=== PATIENT | female | born 1945 | race African-American/Black ===

== ENCOUNTER 2017-06-10 14:27 | Inpatient (IN) | payer MEDICARE ==
[2017-06-10] MEDS ORDERED: Albuterol/Ipratropium NEB.SOL* Albuterol 2.5 MG/Ipratropium 0.5 MG 3 ML INH ONE (14:52)
--- NOTE | 2017-06-10 15:16 | RAD ---
Indication: Shortness of breath. 2 views of the chest are reviewed. No prior study is available for comparison. There is a large right pleural effusion with right basilar atelectasis is noted. Left lung field is clear. IMPRESSION: Large right pleural effusion with right basilar atelectasis. Left lung field is clear.
[2017-06-10 16:00] LABS: Hematocrit 40 % (35-47); Hemoglobin 13.4 g/dl (12.0-16.0); Mean Corpuscular HGB Conc 33 g/dl (31-36); Mean Corpuscular Hemoglobin 28 pg (27-31); Mean Corpuscular Volume 85 fL (80-97); Mean Platelet Volume 7 um3 (7.4-10.4); Red Blood Count 4.74 10^6/ul (4.0-5.4); Red Cell Distribution Width 14 % (10.5-15); White Blood Count 9.1 10^3/ul (3.5-10.8)
[2017-06-10 16:23] LABS: Troponin I 0.01 ng/mL (<0.04)
[2017-06-10 16:34] LABS: ALT 14 U/L (7-52); Albumin 3.9 g/dL (3.2-5.2); Alkaline Phosphatase 62 U/L (34-104); Blood Urea Nitrogen 7 mg/dL (6-24); C Reactive Protein 10.58 mg/L (< 5.00); CO2 Carbon Dioxide 20 mmol/L (22-32); Calcium 9.3 mg/dL (8.6-10.3); Chloride 104 mmol/L (101-111); EGFR African American 82.1 (>60); EGFR Non-African American 63.8 (>60); Globulin 5.2 g/dL (2-4); Glucose 114 mg/dL (70-100); Sodium 136 mmol/L (133-145); Total Protein 9.1 g/dL (6.4-8.9)
[2017-06-10 16:36] LABS: Anion Gap 12 mmol/L (2-11)
[2017-06-10] MEDS ORDERED: Dextrose 50% Syringe 50 ML* 25 GM/50 ML SYRINGE IV PUSH PRN (17:39)
[2017-06-10] MEDS ORDERED: Ondansetron INJ* 2 MG/ML VIAL IV PRN (17:39)
[2017-06-10] MEDS ORDERED: Metoprolol Tartrate TAB* 50 mg PO SCH ×2 (17:56→21:00)
[2017-06-10] MEDS ORDERED: Lidocaine 1%* 5 ML VIAL ONE (18:25)
--- NOTE | 2017-06-10 18:38 | ED ---
Timmy Garcia Angela, scribed for Mina Christopher MD on 06/10/17 at 1453 . Shortness of Breath - HPI Summary HPI Summary: This pt is a 71 y/o female presenting to [facility] c/o non-productive cough that first began 3 weeks ago and SOB x2 weeks ago. Pt notes her symptoms have been worsening every day. Her SOB is aggravated when in a supine position and it is alleviated when sitting upright. She additionally c/o intermittent right chest pain. She also states she has had a couple of days of night sweats, chronic diarrhea/soft stool (secondary to hiatal hernia). Pt has never had SOB in the past. Pt denies fever, nausea, vomiting, constipation. She states traveling from [place] to [place] via airplane on 05/15/17 to visit her son. Pt is a former smoker. She denies any hx of COPD, asthma, CHF. PMHx: HTN, DM, HLD. - History of Current Complaint Time Seen by Provider: 06/10/17 14:41 Hx Obtained From: Patient Onset/Duration: Lasting Weeks Aggrevating Factors: Recumbent Position Alleviating Factors: Upright Position Associated Signs & Symptoms: Cough (Nonproductive), Wheezing, Chest Pain Unrelated to Cough, Diaphoresis - night sweats - Allergy/Home Medications Allergies/Adverse Reactions: Allergies Allergy/AdvReac Type Severity Reaction Status Date / Time Codeine Allergy Rash Verified 08/10/13 08:40 Lisinopril Allergy Rash Verified 08/10/13 08:40 Penicillins Allergy Rash Verified 08/10/13 08:40 Home Medications: Home Medications Aspirin EC Low Dose* [Ecotrin EC Low Dose 81 MG*] 81 mg PO DAILY 06/10/17 [ History Confirmed 06/10/17] Azelastine 0.15% NASAL(NF) [Astepro 0.15% NASAL (NF)] 2 spray NASAL DAILY PRN [History Confirmed 06/10/17] Cyanocobalamin TAB* [Vitamin B12 TAB*] 2,000 mcg PO DAILY 06/10/17 [History Confirmed 06/10/17] Metoprolol Tartrate TAB* [Lopressor TAB*] 50 mg PO BID 06/10/17 [History Confirmed 06/10/17] Omeprazole CAP* [Prilosec CAP* 20 MG] 20 mg PO DAILY 06/10/17 [History Confirmed 06/10/17] Pravastatin (NF) [Pravachol (NF)] 40 mg PO QPM 06/10/17 [History Confirmed 06/10] Triamcinolone NASAL SPRAY* [Nasacort AQ Nasal [place]*] 2 spray BOTH NARES DAILY 06/10/17 [History Confirmed 06/10/17] amLODIPine TAB* [Norvasc 5 mg TAB*] 10 mg PO DAILY 06/10/17 [History Confirmed 06/10/17] metFORMIN* [Glucophage 1000 MG TAB *] 1,000 mg PO BID 06/10/17 [History Confirmed 06/10/17] PMH/Surg Hx/FS Hx/Imm Hx Endocrine/Hematology History: Reports: Hx Diabetes Cardiovascular History: Reports: Hx Hypercholesterolemia, Hx Hypertension Denies: Hx Congestive Heart Failure Respiratory History: Denies: Hx Asthma, Hx Chronic Obstructive Pulmonary Disease (COPD) Infectious Disease History: Denies: Traveled Outside the [place] in Last 30 Days - Family History Known Family History: Negative: Diabetes - Social History Alcohol Use: None Hx Substance Use: No Substance Use Type: Reports: None Smoking Status (MU): Former Smoker Review of Systems Negative: Fever, Chills Eyes: Negative Positive: Chest Pain - right sided Positive: Shortness Of Breath, Cough Positive: Diarrhea - soft stools, chronic secondary to hiatal hernia. Negative : Vomiting, Nausea Negative: Headache, Weakness, Paresthesia All Other Systems Reviewed And Are Negative: Yes Physical Exam - Summary Physical Exam Summary: VITAL SIGNS: Reviewed. GENERAL: Patient is a well-developed and nourished female who is lying comfortable in the stretcher. Patient is not in any acute respiratory distress. HEAD AND FACE: No signs of trauma. No ecchymosis, hematomas or skull depressions. No sinus tenderness. There is some nasal congestion. EYES: PERRLA, EOMI x 2, No injected conjunctiva, no nystagmus. EARS: Hearing grossly intact. Ear canals and tympanic membranes are within normal limits. MOUTH: Oropharynx within normal limits. NECK: Supple, trachea is midline, no adenopathy, no JVD, no carotid bruit, no c- spine tenderness, neck with full ROM. CHEST: Symmetric, no tenderness at palpation LUNGS: There is wheezing at both apices of the lungs. CVS: Regular rate and rhythm, S1 and S2 present, no murmurs or gallops appreciated. ABDOMEN: Soft, non-tender. No signs of distention. No rebound no guarding, and no masses palpated. Bowel sounds are normal. EXTREMITIES: FROM in all major joints, no edema, no cyanosis or clubbing. NEURO: Alert and oriented x 3. No acute neurological deficits. Speech is normal and follows commands. SKIN: Dry and warm Triage Information Reviewed: Yes Vital Signs On Initial Exam: Initial Vital Signs: Temperature: 97.7 Pulse rate: 91 Respiratory rate: 20 O2 saturation: 99 Blood pressure: 186/78 Vital Signs Reviewed: Yes Diagnostics - Laboratory Result Diagrams: 06/10/17 15:50 06/10/17 15:50 Lab Statement: Any lab studies that have been ordered have been reviewed, and results considered in the medical decision making process. - Radiology Chest XR Xray Interpretation: Positive (See Comments) - IMPRESSION: Large right pleural effusion with right basilar atelectasis. Left lung field is clear. ED physician has reviewed this radiology report and agrees. Radiology Interpretation Completed By: Radiologist - EKG 1516 Cardiac Rate: NL - 95 bpm EKG Rhythm: Sinus Rhythm EKG Interpretation: ST depression on leads I, II, V3-V6 without ST elevations. Course/Dx - Course Assessment/Plan: This pt is a 71 y/o female presenting to [facility] c/o non- productive cough that first began 3 weeks ago and SOB x2 weeks ago. Pt notes her symptoms have been worsening every day. Her SOB is aggravated when in a supine position and it is alleviated when sitting upright. She additionally c/o intermittent right chest pain. She also states she has had a couple of days of night sweats, chronic diarrhea/soft stool (secondary to hiatal hernia). Pt has never had SOB in the past. Pt denies fever, nausea, vomiting, constipation. She states traveling from [place] to [place] via airplane on 05/15/17 to visit her son. Pt is a former smoker. She denies any hx of COPD, asthma, CHF. PMHx: HTN , DM, HLD. Test results without any significant abnormalities except for glucose of 114, CRP of 10.5. Chest XR shows pleural effusion possibly because of SOB. The pt is stable at this point, I discussed the case with Aryan Webber who discussed with Dr. Castañeda, and accepted the pt for admission. A d- dimer was ordered and it was elevated. Peter Webber ordered a CTA and will follow up with the pt on this. At this point, the pt is hemodynamically stable, alert and oriented x3. - Diagnoses Provider Diagnoses: Right sided pleural effusion, Dyspnea, Hypoxia - Physician Notifications Discussed Care of Patient With: Peter Webber Instructed by Provider To: Other - I discussed the case with Peter Webber, who spoke to Dr. Castañeda, and agreed to admit the pt. Discharge - Discharge Plan Condition: Stable Disposition: ADMITTED TO [facility] The documentation as recorded by the Timmy lazo Angela accurately reflects the service I personally performed and the decisions made by , Mina Christopher MD.
--- NOTE | 2017-06-10 21:14 | HP ---
HISTORY AND PHYSICAL:* ADDENDUM: Ms. Hightower is a 71-year-old female, who was visiting her son, who lives here in [place] and she presented with significant shortness of breath and was found to be hypoxemic. The patient has large right-sided pleural effusion. She is going to be admitted to the hospital for further evaluation and treatment of the pleural effusion. So far, it does not appear to be an infectious process. For further details of the patient's presentation and plan , please see history and physical dictated by Peter Webber NP, on 06/10/17, with which I agree. [id number]/CPS #: [id number] MTDD
--- NOTE | 2017-06-10 21:19 | RAD ---
INDICATION: Shortness of breath and pleural effusion. COMPARISON: Comparison is made with a prior chest x-ray study of the same date. TECHNIQUE: A CT angiogram of the chest was attempted. The patient received a total of 75 mL of Visipaque 320 nonionic contrast intravenously. Approximately 50 mL of the contrast extravasated into the patient's forearm. The referring clinician was made aware the extravasation. Additional attempts were made to obtain intravenous access without success. The referring clinician decided to discontinue the study. FINDINGS: The initial internet marketing coordinator film demonstrates a moderate size right pleural effusion and right lung infiltrate. IMPRESSION: UNSUCCESSFUL CT ANGIOGRAM OF THE CHEST DESCRIBED.
--- NOTE | 2017-06-10 21:24 | RAD ---
INDICATION: Right pleural effusion status post thoracentesis. COMPARISON: Comparison is made with a prior chest x-ray study from approximately 6 hours earlier. TECHNIQUE: Dual-energy PA inspiratory and expiratory views of the chest were obtained. FINDINGS: The heart is within normal limits in size. The lungs are underinflated. There is a small to moderate size right pleural effusion and right basilar infiltrate. There is more focal increased density in the right paramediastinal and right hilar region suspicious for a mass or adenopathy. No pneumothorax is seen. IMPRESSION: 1. INTERVAL DECREASE IN SIZE OF THE RIGHT PLEURAL EFFUSION, NO PNEUMOTHORAX IS SEEN. 2. FOCAL INCREASED DENSITY IN THE RIGHT PARAMEDIASTINAL AND HILAR REGION SUSPICIOUS FOR A MASS OR ADENOPATHY. RECOMMEND A CT OF THE CHEST WITH CONTRAST FOR FURTHER EVALUATION.
--- NOTE | 2017-06-10 21:39 | HP ---
ATTENDING PHYSICIAN ADDENDUM NOW INCLUDED ON THIS REPORT CC: Dr. Lizet Santizo; Dr. Malave * HISTORY AND PHYSICAL: DATE OF ADMISSION: 06/10/17 PRIMARY CARE PROVIDER: Dr. Lizet Santizo from [facility], phone number # ATTENDING PHYSICIAN WHILE IN THE HOSPITAL: Katelyn Castañeda MD * (report dictated by Peter Webber NP) CONSULTING SURGEON: Dr. Malave. CHIEF COMPLAINT: 1. Cough. 2. Shortness of breath. 3. Night sweats. HISTORY OF PRESENT ILLNESS: Ms. Hightower is a 71-year-old female patient with a history of hypertension, hyperlipidemia, GERD, diabetes, gout, AIFA, history of nephrolithiasis, and hiatal hernia. She comes into the ER today stating that she on 05/15/17, was getting ready to travel to [place] from [place] to visit her son. She has had dry nagging cough that she went and actually saw her primary there and they felt that it was probably viral. They instructed her that it would probably run its course and that she would be safe to travel. She underwent travel and she flew here and over the last 3 weeks, she has had this progressive worsening cough to the point now where she is short of breath when she coughs. She cannot lie flat or sleep flat at night because she is too short of breath. She denied having any chest pain. She denied having any abdominal pain. There has been no nausea or vomiting. There has been no dysuria. She denied having any fevers. She does admit to having chills at night. She is unaware if there has been any weight changes. She denies having any calf pain or leg swelling. She denies any abdominal discomfort. She denies having any abdominal symptoms such as nausea and vomiting. She does state that she has been having a decreased appetite. She came into the ED today. She was evaluated. Ultimately, it was found that she appeared to have large pleural effusion on her right lung and because of the fact that she could not lie flat. In addition to this, she was requiring O2 now. We were asked to evaluate for admission. PAST MEDICAL HISTORY: Significant for: 1. Hypertension. 2. Hyperlipidemia. 3. GERD. 4. Diabetes. 5. Hiatal hernia. 6. AFIA. She does not wear her mask 7. Gout. 8. Nephrolithiasis. PAST SURGICAL HISTORY: 1. She has had a laparoscopic cholecystectomy. 2. She has had partial nephrectomy on the left side. HOME MEDICATIONS: According to list provided include: 1. Metformin 1000 mg p.o. b.i.d. 2. Norvasc 10 mg daily. 3. Nasacort 2 sprays both nares daily. 4. Pravachol 40 mg p.o. daily. 5. Prilosec 20 mg p.o. daily. 6. Lopressor 50 mg p.o. b.i.d. 7. Astepro 2 sprays nasally daily as needed. 8. B12 2000 mcg p.o. daily. 9. Aspirin 81 mg daily. ALLERGIES TO MEDICATIONS: Include CODEINE, LISINOPRIL, PENICILLIN, and CLINDAMYCIN. FAMILY HISTORY: Her mother had a history of diabetes and high blood pressure. Father had diabetes and history of CVA. SOCIAL HISTORY: She is a former smoker. She does not drink alcohol. She lives with her daughter in [place]. Surrogate decision maker is her daughter. REVIEW OF SYSTEMS: There is no documented fever. She does admit to having chills at night. She denies having any abdominal discomfort. There was no nausea. No vomiting. There is no dysuria. No frequency. She denied any loss of consciousness. No pruritus. No skin ulcerations. Review of 14 systems completed, all others negative. PHYSICAL EXAMINATION GENERAL: At this time, Ms. Hightower is a 71-year-old female patient. She appears to be well nourished, well developed. She is sitting in the ER stretcher. She appears to be in a mild amount of respiratory distress. VITAL SIGNS: Blood pressure 188/93, pulse 88, respirations were 21, O2 sat 97% on 3.5 L. HEENT: Head atraumatic. Eyes: Sclerae anicteric and not pale. Throat: Oral mucosa appears to be moist. No oropharyngeal erythema. NECK: Supple. LUNGS: Diminished on that right side. She had equal diaphragmatic expansion. HEART: Sounds S1, S2. Regular rate and rhythm. No murmurs, rubs, or gallops. ABDOMEN: Soft, flat, nontender. Bowel sounds present. EXTREMITIES: Pulses were 2+ throughout. She is able to move all 4 extremities with 5/5 strength. NEUROLOGIC: The patient is awake. She is alert. She is oriented x3. Tongue midline. Dyeing Machine Feeder were equal. No gross focal deficits. SKIN: Intact. LABORATORY/DIAGNOSTIC DATA: Revealed WBC of 9.1, RBC of 4.74, hemoglobin of 13.4, hematocrit of 40, platelet count of 621. Her D-dimer was 618. Her sodium was 136, potassium is pending, chloride of 104, bicarb 20, BUN 7, creatinine 0.87, glucose 114, calcium 9.3, total bili 0.6. ALT 14, alk phos 62. Her troponin was 0.01, CRP of 10.58, BNP of 31, albumin of 3.9. She did have a chest x-ray obtained today, which showed large pleural effusion with right basilar atelectasis, left lung field is clear. She did have an EKG obtained today as well, which revealed a normal sinus rhythm with a rate of 95. She did have some ST depression in V2, V3, V4, V5, V6 and depression in lead II. No ST elevations or T wave inversions were noted. No previous EKG for comparison. Old medical records again limited, but reviewed. ASSESSMENT AND PLAN: Ms. Hightower is a 71-year-old female patient coming into the ER today with complaints of progressive worsening cough and shortness of breath with night sweats with recent travel. She came into the ER, was evaluated, was found to have a large right-sided pleural effusion. She will be admitted under observation status for: 1. Pleural effusion, etiology is unclear. She is a former smoker. This makes me concerned for possible malignancy. I do not think this is actively infected as she has no fever, no white count and again being that it is a one-sided pleural effusion, less likely this is cardiac related. I think we need a thoracentesis more urgently, which is going to be done tonight by Dr. Malave because the patient is orthopneic at times and she is also requiring O2 which she does not require typically. So, I would like to perform a thoracentesis. We will send off for cell count, cultures, LDH, pH, and total protein. I will also get a cytology on this as well. I am also ordering a CTA of the chest to rule out pulmonary embolism as her D-dimer is mildly elevated and the recent travel and we will continue to follow. I am holding on antibiotics at this point. 2. Hypertension: She did not take her meds this morning. Her blood pressure here was in the 180s. I am going to restart her Norvasc and metoprolol tonight and we will continue her meds as prescribed. If we need to, we will add on another agent or p.r.n. hydralazine. 3. Hyperlipidemia: Continue meds as prescribed. 4. Diabetes. Because she is going to get CTA, I am going to hold off on giving her metformin. I have instructed her to push fluids tonight. I am cautious of giving IV fluids in the setting of this pleural effusion. I do not want to compromise her respiratory status, so I have encouraged her to push p.o. fluids after the contrast load and we will hold the metformin, put on lispro sliding scale. 5. Gastroesophageal reflux disease. Continue PPI therapy. 6. Hiatal hernia. Follow with the primary. 7. Obstructive sleep apnea. Again, she is not compliant with her mask. She will need to again follow with her primary. 8. Gout, not an active issue. 9. History of nephrolithiasis, not an active issue. 10. DVT prophylaxis. I will put her on heparin subcu. 11. Code status. She is a full code. 12. Fluids, electrolytes, nutrition. She is n.p.o. and after then thoracentesis, I will put her on a diabetic diet. TIME SPENT: Time spent on this admission was approximately 60 minutes; greater than half time spent [id number] with the patient, obtaining my history and physical. The other half time was spent going over the plan of care of the patient and implementing the plan of care. I did discuss this plan of care with my attending physician, Dr. Castañeda, she is in agreement. PETER WEBBER NP ADDENDUM: Ms. Hightower is a 71-year-old female, who was visiting her son, who lives here in [place] and she presented with significant shortness of breath and was found to be hypoxemic. The patient has large right-sided pleural effusion. She is going to be admitted to the hospital for further evaluation and treatment of the pleural effusion. So far, it does not appear to be an infectious process. For further details of the patient's presentation and plan, please see history and physical dictated by Peter Webber NP, on 06/10/17, with which I agree. KATELYN CASTAÑEDA MD [id number]/CPS #: [id number]/CPS #: [id number] DANA
[2017-06-10 22:02] LABS: Body Fluid Total Cells Counted 100
[2017-06-10 22:03] LABS: Body Fluid Appearance Bloody; Body Fluid WBC 417 /mcL
--- NOTE | 2017-06-10 22:03 | CONS ---
CONSULTATION REPORT: DATE OF CONSULTATION: 06/10/17 REASON FOR CONSULTATION: Right pleural effusion. HISTORY OF PRESENT ILLNESS: Ms. Hightower is a 71-year-old female visiting from [place]. She reports onset of dry cough on or about May 15 with some chills, night sweats, and no documented fever. She had noted worsening of dyspnea over the past 1 week and now is short of breath at rest, has orthopnea and dyspnea on exertion. She was seen at the [facility] Emergency Room and evaluated and found to have a right pleural effusion. Hospitalist service was called to admit the patient and we were asked to perform thoracentesis. PAST MEDICAL HISTORY: Significant for: 1. Diabetes. 2. Hyperlipidemia. 3. Hypertension. 4. Kidney stones. 5. History of cigarette smoking. 6. Reflux. PAST SURGICAL HISTORY: She had multiple procedures for nephrolithiasis including a partial nephrectomy. She has had cholecystectomy. MEDICATIONS: Include: 1. Metformin. 2. Amlodipine. 3. Aspirin. 4. Lipitor. 5. Pravachol. 6. Prilosec. 7. B12. 8. Nasacort. 9. Metoprolol. 10. Azelastine nasal spray. ALLERGIES: 1. CLINDAMYCIN has caused GI upset. 2. PENICILLIN unknown reaction. 3. LISINOPRIL has caused facial swelling. 4. CODEINE has caused difficulty breathing. FAMILY HISTORY: Includes diabetes. SOCIAL HISTORY: History of cigarette smoking for 10 pack years, quit in the 1960s. No alcohol or drug use. She lives with her daughter in [place]. She is visiting her son, Jamil in [place]. PHYSICAL EXAM: Vital Signs: Temperature is 97.7, her heart rate 87, respirations are 20, O2 sat 97% with blood pressure of 180/93. HEENT: She appears normocephalic and atraumatic. Sclerae anicteric. Mucous membranes are moist. Her neck is symmetrical. Trachea is midline. Lungs are noted to have diminished breath sounds on the right with dullness to percussion over the right lower 2/3 of the lung sena. DIAGNOSTIC STUDIES/LAB DATA: Chest x-ray was reviewed and significant for a right pleural effusion. IMPRESSION: A 71-year-old female with new right pleural effusion, which is moderately symptomatic and requires thoracentesis. PLAN/RECOMMENDATIONS: Procedure was discussed with the patient and her son, who accompanied her. The procedure was explained including risks, benefits, and alternatives and option of no treatment. Risks were explained including, but not limited to bleeding, infection, pain, scarring, lung collapse, and need for additional procedures. The patient had an opportunity to ask questions, and all her questions were answered. She stated her understanding and agreed to proceed. The patient is scheduled to go for CT scan of the chest, which will be delayed till after the thoracentesis procedure. [id number]/[facility] #: [id number] DANA
--- NOTE | 2017-06-10 23:03 | PN ---
Hospitalist Progress Note Called about unsuccessful CTA due to no access and second attempt iv infiltrate. At this point will hold on cta, chest xray shows possible mass, well criteria, is low and I have another reason to explain patient SOB (pleural effusion) in addition patient had recent thoracentesis which at this point is a relative contraindication for empiric anticoagulation, suspect elevated d-dimer is from patients pleural effusion and possible mass,
[2017-06-10] MEDS: cefTRIAXone VIAL(*) 1,000 MG in NS 0.9% 50 ML* 50 ML IVPB SCH (23:04)
[2017-06-10] MEDS: Atorvastatin* 10 MG TAB PO SCH (23:04)
[2017-06-10] MEDS: Heparin VIAL(*) 5000 UNITS/ML VIAL (FIVE THOUSAND) SUBCUT SCH (23:17)
[2017-06-10] MEDS: Azithromycin IV(*) 500 MG in NS 0.9% 250 ML* 250 ML IVPB SCH (23:42)
[2017-06-10] MEDS: Metoprolol Tartrate TAB* 25 MG PO SCH (23:42)
[2017-06-11 02:26] LABS: Urine Bilirubin Negative (Negative); Urine Glucose Negative (Negative); Urine Nitrite Negative (Negative)
[2017-06-11] MEDS: Heparin VIAL(*) 5000 UNITS/ML VIAL (FIVE THOUSAND) SUBCUT SCH ×3 (05:15→22:01)
[2017-06-11 05:21] LABS: Hematocrit 35 % (35-47); Hemoglobin 11.4 g/dl (12.0-16.0); Mean Corpuscular HGB Conc 33 g/dl (31-36); Mean Corpuscular Hemoglobin 28 pg (27-31); Mean Corpuscular Volume 85 fL (80-97); Mean Platelet Volume 7 um3 (7.4-10.4); Red Blood Count 4.09 10^6/ul (4.0-5.4); Red Cell Distribution Width 14 % (10.5-15); White Blood Count 9.5 10^3/ul (3.5-10.8)
[2017-06-11 05:33] LABS: BUN/Creatinine Ratio 8.5 (8-20); Calcium 8.7 mg/dL (8.6-10.3); EGFR African American 87.9 (>60); EGFR Non-African American 68.3 (>60); Potassium 3.9 mmol/L (3.5-5.0)
[2017-06-11] MEDS: Metoprolol Tartrate TAB* 25 MG PO SCH ×2 (08:43→21:06)
[2017-06-11] MEDS: Omeprazole CAP* 20 MG PO SCH ×2 (08:43→08:46)
[2017-06-11] MEDS: amLODIPine TAB* 5 MG PO SCH (08:43)
[2017-06-11] MEDS: Aspirin EC Low Dose* 81 MG TAB.EC PO SCH (08:44)
[2017-06-11] MEDS: Insulin LISPRO* 1 UNITS UNIT SUBCUT SCH ×3 (08:44→17:39)
[2017-06-11] MEDS ORDERED: amLODIPine TAB* 5 MG PO SCH (09:00)
--- NOTE | 2017-06-11 09:18 | RAD ---
INDICATION: Right-sided effusion. Postthoracentesis COMPARISON: Chest x-ray June 10, 2017 TECHNIQUE: An AP portable view obtained at 0905 hours is submitted. FINDINGS: Bones/Soft Tissues: There are no acute bony findings. Cardiomediastinal: The cardiac silhouette is unchanged. The silhouette is partially obscured by airspace disease in right hemothorax.. Lungs: Left lung is clear. There is airspace disease in the right chest unchanged.. Pleura: There is a moderate sized right-sided effusion. This is similar to the last examination and smaller relative to the prethoracentesis images. Other: None IMPRESSION: PLEURAL AND PARENCHYMAL CHANGES RIGHT HEMITHORAX, UNCHANGED.
--- NOTE | 2017-06-11 10:34 | PRO ---
DATE OF PROCEDURE: 06/10/17 - ROOM #441 DATE OF : 41 SURGEON: Gonzalo Malave MD ACTUARIAL INTERNSHIP: None. ANESTHESIA: 1% lidocaine plain used locally. PREPROCEDURE DIAGNOSIS: Right pleural effusion. POSTPROCEDURE DIAGNOSIS: Right pleural effusion. PROCEDURE PERFORMED: Right thoracentesis. ESTIMATED BLOOD LOSS: Minimal. SPECIMENS: Pleural fluid. DRAINS: None. COMPLICATIONS: None. COUNTS: Instrument, needle, and sponge count correct. DESCRIPTION OF PROCEDURE: The patient was positioned sitting on the emergency room stretcher lying over bedside table. The right posterior chest was prepped and draped in the usual sterile fashion. Time-out was performed. Local anesthetic was infiltrated approximately 5 fingerbreadths below the right tip of the scapula and the anesthetic was infiltrated to the tissues down to the pleural cavity and the pleural fluid was aspirated. This appeared to be serosanguineous. The thoracentesis needle over catheter device was utilized. The needle was placed into the pleural cavity. Its position confirmed by aspirating pleural fluid. The catheter was advanced and the needle backed out and the clip placed. Thoracentesis was then performed using an evacuating canister until 1 L of serosanguineous fluid was removed. The patient did experience coughing but no pain. The procedure was concluded after 1 L was removed. The catheter was removed. The bandage applied. The patient tolerated the procedure well. Postprocedure CT scan has been ordered and is pending. [id number]/CPS #: [id number] MTDD
--- NOTE | 2017-06-11 15:04 | PN ---
Subjective Date of Service: 06/11/17 Interval History: Received thoracentesis last night, otherwise no overnight events. Unable to wean O2, still on 2L this morning. SHe does feel a little better. She denies chest pain, orthopnea, weight loss or gain. She does note a nonproductive cough , no fevers, occasional night sweats. Family History: Unchanged from Admission Social History: Unchanged from Admission Past Medical History: Unchanged from Admission Objective Active Medications: Amlodipine Besylate (Norvasc Tab*) 10 mg PO DAILY [facility] Last Admin: 06/11/17 08:43 Dose: 10 mg Aspirin (Aspirin Ec Low Dose*) 81 mg PO DAILY [facility] Last Admin: 06/11/17 08:44 Dose: 81 mg Atorvastatin Calcium (Lipitor*) 10 mg PO QPM [facility] PRN Reason: Protocol Last Admin: 06/10/17 23:04 Dose: 10 mg Dextrose (D50w Syringe 50 Ml*) 12.5 gm IV PUSH .FOR FS < 60 - SS PRN PRN Reason: FS < 60 Heparin Sodium (Porcine) (Heparin Vial(*)) 5,000 units SUBCUT Q8HR [facility] Last Admin: 06/11/17 13:47 Dose: Not Given Ceftriaxone Sodium 1,000 mg/ (Sodium Chloride) 50 mls @ 200 mls/hr IVPB Q24H [facility] Last Admin: 06/10/17 23:04 Dose: 200 mls/hr Azithromycin 500 mg/ Sodium (Chloride) 250 mls @ 250 mls/hr IVPB Q24H [facility] Last Admin: 06/10/17 23:42 Dose: 250 mls/hr Insulin Human Lispro (Humalog*) 0 units SUBCUT AC [facility] PRN Reason: Protocol Last Admin: 06/11/17 12:05 Dose: Not Given Metoprolol Tartrate (Lopressor Tab*) 50 mg PO BID [facility] Last Admin: 06/11/17 08:43 Dose: 50 mg Omeprazole (Prilosec Cap*) 20 mg PO DAILY@0730 [facility] Last Admin: 06/11/17 08:46 Dose: Not Given Ondansetron HCl (Zofran Inj*) 4 mg IV Q6H PRN PRN Reason: NAUSEA Vital Signs 06/10/17 06/10/17 06/10/17 18:00 18:11 18:13 Temperature 97.6 F Pulse Rate 98 100 Respiratory 19 20 Rate Blood Pressure 168/82 177/99 (mmHg) O2 Sat by Pulse 98 98 Oximetry 06/10/17 06/10/17 06/10/17 18:30 19:00 20:00 Temperature Pulse Rate 114 110 Respiratory 25 28 20 Rate Blood Pressure 184/96 168/82 (mmHg) O2 Sat by Pulse 95 97 Oximetry 06/11/17 06/11/17 06/11/17 03:52 04:41 07:13 Temperature 99.0 F 98.3 F Pulse Rate 78 80 Respiratory 22 20 Rate Blood Pressure 140/64 136/66 (mmHg) O2 Sat by Pulse 98 98 99 Oximetry 06/11/17 06/11/17 06/11/17 07:20 07:44 11:22 Temperature 97.9 F Pulse Rate 77 Respiratory 20 20 Rate Blood Pressure 131/58 (mmHg) O2 Sat by Pulse 98 99 Oximetry Oxygen Devices in Use Now: Nasal Cannula Appearance: alert, well appearing, no distress Eyes: No Scleral Icterus, PERRLA Ears/Nose/Mouth/Throat: NL Teeth, Lips, Gums, Clear Oropharnyx Neck: NL Appearance and Movements; NL JVP, Trachea Midline, No Thyroid Enlargement, Masses Respiratory: Symmetrical Chest Expansion and Respiratory Effort, - - decreased breath sounds up to right mid-lung Cardiovascular: NL Sounds; No Murmurs; No JVD, RRR, No Edema Abdominal: NL Sounds; No Tenderness; No Distention, No Hepatosplenomegaly Lymphatic: No Cervical Adenopathy, No Axillary Adenopathy Extremities: No Edema Skin: No Rash or Ulcers Neurological: Alert and Oriented x 3 Result Diagrams: 06/11/17 04:58 06/11/17 04:57 Microbiology and Other Data: Microbiology 06/10/17 19:00 Gram Stain - Final Body Fluid - Pleura Assess/Plan/Problems-Billing Assessment: 1. New-onset pleural effusion Unclear etiology; awaiting pleural fluid LDH and protein for Light's criteria. Clinically, she does not have pneumonia and is not in heart failure. I agree that malignancy is high on the differential. Unfortunately, the effusion reaccumulated overnight. Due to the quick reaccumulation, she may need a pleurex catheter versus chest tube versus pleurodesis, but I would wait for more information about etiology before moving forward with that intervention. She is stable on 2L and is very comfortable. Will ask for pulmonology input. Cytology also pending. CT with contrast pending to evaluate for mass. Will trial gentle diuresis. 2. Acute hypoxic respiratory failure likely 2/2 #1; unable to wean O2 at this point 3. HTN now well controlled on home meds 4. DMII holding po meds due to dye exposure; continue sliding scale 5. dvt ppx--heparin sc 6. full code
[2017-06-11] MEDS ORDERED: Furosemide IV* 10 MG/ML 2 ML VIAL (20 MG) IV ONE (15:43)
[2017-06-11] MEDS: Atorvastatin* 10 MG TAB PO SCH (17:40)
[2017-06-11] MEDS ORDERED: Furosemide TAB* 20 MG PO ONE (18:23)
[2017-06-11] MEDS: cefTRIAXone VIAL(*) 1,000 MG in NS 0.9% 50 ML* 50 ML IVPB SCH (22:41)
[2017-06-11] MEDS: Azithromycin IV(*) 500 MG in NS 0.9% 250 ML* 250 ML IVPB SCH (23:24)
[2017-06-12] MEDS: Heparin VIAL(*) 5000 UNITS/ML VIAL (FIVE THOUSAND) SUBCUT SCH ×3 (05:12→21:23)
[2017-06-12] MEDS: Omeprazole CAP* 20 MG PO SCH ×2 (07:36→07:38)
[2017-06-12] MEDS: Metoprolol Tartrate TAB* 25 MG PO SCH ×2 (08:33→21:18)
[2017-06-12] MEDS: amLODIPine TAB* 5 MG PO SCH (08:33)
[2017-06-12] MEDS: Aspirin EC Low Dose* 81 MG TAB.EC PO SCH (08:33)
[2017-06-12] MEDS: Insulin LISPRO* 1 UNITS UNIT SUBCUT SCH ×3 (09:02→16:54)
--- NOTE | 2017-06-12 10:02 | PN ---
Subjective Date of Service: 06/12/17 Interval History: Patient seen this morning. Reports breathing is better than admission but still a bit labored, still with cough that is occasionally productive. No fever or chills. Family History: Unchanged from Admission Social History: Unchanged from Admission Past Medical History: Unchanged from Admission Objective Active Medications: Amlodipine Besylate (Norvasc Tab*) 10 mg PO DAILY [facility] Last Admin: 06/12/17 08:33 Dose: 10 mg Aspirin (Aspirin Ec Low Dose*) 81 mg PO DAILY [facility] Last Admin: 06/12/17 08:33 Dose: 81 mg Atorvastatin Calcium (Lipitor*) 10 mg PO QPM [facility] PRN Reason: Protocol Last Admin: 06/11/17 17:40 Dose: 10 mg Dextrose (D50w Syringe 50 Ml*) 12.5 gm IV PUSH .FOR FS < 60 - SS PRN PRN Reason: FS < 60 Heparin Sodium (Porcine) (Heparin Vial(*)) 5,000 units SUBCUT Q8HR [facility] Last Admin: 06/12/17 05:12 Dose: Not Given Insulin Human Lispro (Humalog*) 0 units SUBCUT AC [facility] PRN Reason: Protocol Last Admin: 06/12/17 09:02 Dose: 2 units Metoprolol Tartrate (Lopressor Tab*) 50 mg PO BID [facility] Last Admin: 06/12/17 08:33 Dose: 50 mg Omeprazole (Prilosec Cap*) 20 mg PO DAILY@0730 [facility] Last Admin: 06/12/17 07:38 Dose: Not Given Ondansetron HCl (Zofran Inj*) 4 mg IV Q6H PRN PRN Reason: NAUSEA Vital Signs 06/11/17 06/11/17 06/11/17 11:22 16:17 20:00 Temperature 97.9 F 97.7 F Pulse Rate 77 79 Respiratory 20 16 16 Rate Blood Pressure 131/58 141/66 (mmHg) O2 Sat by Pulse 99 99 Oximetry 06/11/17 06/11/17 06/12/17 20:31 22:23 00:12 Temperature 98.4 F 98.4 F Pulse Rate 92 81 84 Respiratory 16 16 Rate Blood Pressure 178/74 140/62 141/63 (mmHg) O2 Sat by Pulse 98 96 95 Oximetry 06/12/17 06/12/17 04:03 07:47 Temperature 98.8 F 98.8 F Pulse Rate 80 91 Respiratory 16 20 Rate Blood Pressure 131/66 139/64 (mmHg) O2 Sat by Pulse 95 95 Oximetry Oxygen Devices in Use Now: None Appearance: Elderly, AAF, sitting in bed in NAD Eyes: No Scleral Icterus Ears/Nose/Mouth/Throat: Mucous Membranes Moist Neck: NL Appearance and Movements; NL JVP Respiratory: Symmetrical Chest Expansion and Respiratory Effort, - - Absent BS to mid-R lung sena, relatively clear on L side Cardiovascular: NL Sounds; No Murmurs; No JVD, RRR Abdominal: NL Sounds; No Tenderness; No Distention Lymphatic: No Cervical Adenopathy Extremities: No Edema Skin: No Rash or Ulcers Neurological: Alert and Oriented x 3 Result Diagrams: 06/11/17 04:58 06/11/17 04:57 Microbiology and Other Data: Microbiology 06/10/17 19:00 Gram Stain - Final Body Fluid - Pleura Assess/Plan/Problems-Billing Assessment: R sided pleural effusion in a 71 yo F with hx of HTN, DM and former tobacco abuse - Patient Problems (1) Pleural effusion Current Visit: Yes Comment: Unclear etiology; awaiting pleural fluid LDH and protein for Light's criteria. Nothing significant on gram stain. Clinically, she does not have pneumonia and is not in heart failure. Concern for underlying malignancy. Due to the quick reaccumulation, she may need a pleurex catheter versus chest tube versus pleurodesis, but will wait for more information about etiology before moving forward with that intervention. Weaned to room air. Will ask for pulmonology input. Cytology also pending. CT with contrast pending to evaluate for mass. Continue low dose PO Lasix (2) HTN (hypertension) Current Visit: Yes Comment: Continue home meds (3) Diabetes Current Visit: Yes Comment: HISS, holding home metformin (4) DVT prophylaxis Current Visit: Yes Comment: HSQ
[2017-06-12] MEDS ORDERED: Iodixanol* (CONTRAST) 320 MG/ML 100 ML SDV IV ONE (15:33)
--- NOTE | 2017-06-12 15:55 | RAD ---
HISTORY: Shortness of breath, pleural effusion COMPARISONS: None TECHNIQUE: Multiple contiguous axial CT scans of the chest were obtained with intravenous contrast. Coronal and sagittal multiplanar reformations are also submitted for review. FINDINGS: NECK AND THYROID: The lower neck and thyroid are unremarkable. CHEST WALL: There is no lower cervical, axillary, or supraclavicular lymphadenopathy by size criteria. HEART AND PERICARDIUM: There is an 8.5 x 6.8 x 12.5 cm right paramediastinal and pericardial mass. AORTA AND PULMONARY VASCULATURE: The aorta and pulmonary vasculature are normal. MEDIASTINUM: As noted above, there is an 8.5 x 6.8 x 12.5 cm right paramediastinal and pericardial mass [place]: As noted above, there is large right mediastinal mass extending to the right hilum. AIRWAY AND ESOPHAGUS: The airway is unremarkable, without endobronchial filling defect. The esophagus is grossly normal. LUNG PARENCHYMA: As noted above, there is a large paramediastinal mass along the right upper lobe and middle lobe. There is compressive atelectasis of the right middle lobe and right lower lobe PLEURA: There is a moderate large right pleural effusion. UPPER ABDOMEN: There is diverticulosis of the colon. BONES AND SOFT TISSUES: No bone or soft tissue abnormalities are noted. OTHER: None. IMPRESSION: 1. 12.5 CM LARGE RIGHT PARAMEDIASTINAL AND PERICARDIAL MASS. RECOMMEND CONSIDERATION OF FURTHER EVALUATION WITH TISSUE SAMPLING 2. RIGHT PLEURAL EFFUSION WITH COMPRESSIVE ATELECTASIS OF THE RIGHT MIDDLE LOBE AND LOWER LOBE. 3. DIVERTICULOSIS
[2017-06-12] MEDS: Atorvastatin* 10 MG TAB PO SCH (16:55)
[2017-06-12] MEDS: Polyethylene Glycol 3350* 17 GM PACKET PO PRN (21:18)
[2017-06-12] MEDS: Benzonatate CAP* 100 MG PO SCH (23:56)
[2017-06-13] MEDS: Heparin VIAL(*) 5000 UNITS/ML VIAL (FIVE THOUSAND) SUBCUT SCH ×3 (06:17→21:02)
--- NOTE | 2017-06-13 08:59 | PN ---
Subjective Date of Service: 06/13/17 Interval History: Patient seen this morning. Patient reports feeling OK, still with intermittent cough, breathing stable, weaned off of O2. Explained results of CT scan and findings of paramediastinal mass with patient and her daughter. Patient would like to proceed with biopsy here and likely return home for further work-up/ treatment with her PCP in [place]. Family History: Unchanged from Admission Social History: Unchanged from Admission Past Medical History: Unchanged from Admission Objective Active Medications: Amlodipine Besylate (Norvasc Tab*) 10 mg PO DAILY [facility] Aspirin (Aspirin Ec Low Dose*) 81 mg PO DAILY [facility] Atorvastatin Calcium (Lipitor*) 10 mg PO QPM [facility] Benzonatate (Tessalon Cap*) 100 mg PO TID [facility] Dextrose (D50w Syringe 50 Ml*) 12.5 gm IV PUSH .FOR FS < 60 - SS PRN Heparin Sodium (Porcine) (Heparin Vial(*)) 5,000 units SUBCUT Q8HR [facility] Insulin Human Lispro (Humalog*) 0 units SUBCUT AC [facility] Metoprolol Tartrate (Lopressor Tab*) 50 mg PO BID [facility] Omeprazole (Prilosec Cap*) 20 mg PO DAILY@0730 [facility] Ondansetron HCl (Zofran Inj*) 4 mg IV Q6H PRN Polyethylene Glycol/Electrolytes (Miralax*) 17 gm PO DAILY PRN Vital Signs 06/12/17 06/12/17 06/12/17 11:24 15:07 19:23 Temperature 97.7 F 98.5 F 98.1 F Pulse Rate 74 85 90 Respiratory 18 18 20 Rate Blood Pressure 117/61 124/62 128/63 (mmHg) O2 Sat by Pulse 97 95 97 Oximetry 06/12/17 06/12/17 06/13/17 20:00 23:17 04:10 Temperature 98.0 F 98.5 F Pulse Rate 73 90 Respiratory 20 16 20 Rate Blood Pressure 123/64 119/57 (mmHg) O2 Sat by Pulse 100 96 Oximetry 06/13/17 06/13/17 07:27 08:00 Temperature 98.4 F Pulse Rate 76 Respiratory 16 18 Rate Blood Pressure 115/54 (mmHg) O2 Sat by Pulse 97 Oximetry Oxygen Devices in Use Now: None Appearance: Elderly, AAF, sitting in bed in NAD Eyes: No Scleral Icterus Ears/Nose/Mouth/Throat: Mucous Membranes Moist Neck: NL Appearance and Movements; NL JVP Respiratory: Symmetrical Chest Expansion and Respiratory Effort, - - Absent BS in R lower and middle lung sena Cardiovascular: NL Sounds; No Murmurs; No JVD, RRR Abdominal: NL Sounds; No Tenderness; No Distention Lymphatic: No Cervical Adenopathy Extremities: No Edema Skin: No Rash or Ulcers Neurological: Alert and Oriented x 3 Result Diagrams: 06/11/17 04:58 06/11/17 04:57 Assess/Plan/Problems-Billing Assessment: R sided pleural effusion in a 71 yo F with hx of HTN, DM and former tobacco abuse - Patient Problems (1) Pleural effusion Current Visit: Yes Comment: Large paramediastinal mass found on CT scan; awaiting pleural fluid cytology, LDH and protein. Spoke with Dr. Lazaro this morning who will evaluate the patient, recommended US guided biopsy which will be done by IR. Nothing significant on gram stain. Clinically, she does not have pneumonia and is not in heart failure. Weaned to room air. Continue low dose PO Lasix (2) HTN (hypertension) Current Visit: Yes Comment: Continue home meds (3) Diabetes Current Visit: Yes Comment: HISS, holding home metformin (4) DVT prophylaxis Current Visit: Yes Comment: HSQ
[2017-06-13] MEDS: Insulin LISPRO* 1 UNITS UNIT SUBCUT SCH ×3 (09:11→17:36)
[2017-06-13] MEDS: Aspirin EC Low Dose* 81 MG TAB.EC PO SCH (09:17)
[2017-06-13] MEDS: amLODIPine TAB* 5 MG PO SCH (09:17)
[2017-06-13] MEDS: Omeprazole CAP* 20 MG PO SCH ×2 (09:17→09:20)
[2017-06-13] MEDS: Metoprolol Tartrate TAB* 25 MG PO SCH ×2 (09:17→21:00)
[2017-06-13] MEDS: Benzonatate CAP* 100 MG PO SCH ×3 (09:18→21:00)
--- NOTE | 2017-06-13 09:39 | ECHO ---
Patient: MICHELE TAPIA Rec#: [id number] : 1945 Date: 06/13/2017 Age: 71y Height: 157.48 cm / 62.0 in Weight: 81.19 kg / 178.9 lbs Sex: F BSA: 1.82 Room#: 441 Admit Date#: 06/10/2017 Type: Inpatient Referring: Chen Gamble MD Reading: Sami Hutchinson MD [employer]: Mahi No,RD,RDMS Transthoracic Echocardiogram Indication: Respiratory abnormality, Pleural effusion BP: 119/57 HR: 84 Rhythm: NSR Findings History: Large right pleural effusion, thoracentesis on 06/10, HTN, HLD, DM, smoker. Technical Comments: The study quality is good. Completed 814 Left Ventricle: The left ventricular chamber size is normal. Mild concentric left ventricular hypertrophy is observed. Global left ventricular wall motion and contractility are within normal limits. There is normal left ventricular systolic function. The estimated ejection fraction is 60-65%. There is septal flattening of the interventricular septum consistent with right ventricular volume or pressure overload. There is an E to A reversal in the mitral valve flow pattern suggestive of diastolic dysfunction. Left Atrium: The left atrial chamber size is normal. Right Ventricle: The right ventricular chamber size and systolic function are within normal limits. Right Atrium: The right atrial cavity size is normal. Aortic Valve: The aortic valve is trileaflet. The aortic valve leaflets are mildly thickened. There is aortic annular calcification. There is no evidence of aortic regurgitation. There is no evidence of aortic stenosis. Mitral Valve: The mitral valve leaflets are mildly thickened. There is a trace of mitral regurgitation. There is no evidence of mitral stenosis. Tricuspid Valve: The tricuspid valve leaflets are normal. There is moderate to severe tricuspid regurgitation. The right ventricular systolic pressure is estimated to be 60-65 mmHg. There is evidence of moderate to severe pulmonary hypertension. Pulmonic Valve: The pulmonic valve appears normal. There is mild pulmonic regurgitation. Pericardium: A trivial pericardial effusion is visualized. A right pleural effusion is present. Aorta: The aortic root appears normal. The aortic arch is not well visualized. Pulmonary Artery: The main pulmonary artery appears normal. Venous: The inferior vena cava appears normal in size. There is a greater than 50% respiratory change in the inferior vena cava dimension. Summary: There was not any prior study for comparison. Conclusions Global left ventricular wall motion and contractility are within normal limits. There is normal left ventricular systolic function. The estimated ejection fraction is 60-65%. There is septal flattening of the interventricular septum consistent with right ventricular volume or pressure overload. There is no evidence of aortic stenosis. There is a trace of mitral regurgitation. There is moderate to severe tricuspid regurgitation. There is evidence of moderate to severe pulmonary hypertension. The right ventricular systolic pressure is estimated to be 60-65 mmHg. A trivial pericardial effusion is visualized. A right pleural effusion is present. Measurements Name Value Normal Range RVIDd (AP) 2D 3 cm (0.9 - 2.6) RVDdMajor (2D) 2.1 cm (2.2 - 4.4) RAd ISD 4CH 3.2 cm (3.4 - 4.9) RA (A4C)W 3.1 cm (2.9 - 4.6) IVSd (2D) 1.1 cm (0.6 - 1) LVPWd (2D) 1.1 cm (0.6 - 1) LVIDd (2D) 3.8 cm (3.6 - 5.4) LVIDs (2D) 1.7 cm - LV FS (2D) 56 % (25 - 45) Aortic Annulus 1.8 cm (1.4 - 2.6) Ao root diameter (2D) 2.5 cm (2.1 - 3.5) Ascending Ao 2.9 cm (2.1 - 3.4) LA dimension (AP) 2D 3.3 cm (2.3 - 3.8) LAd ISD 4CH 4.5 cm (2.9 - 5.3) LA ISD 4CH W 3.7 cm (2.5 - 4.5) Name Value Normal Range LA ESV SP 4CH (A/L) 41.93 ml - LA ESV SP 2CH (A/L) 49.95 ml - LA ESV BP (A/L) 48.52 ml - LA ESV BP (A/L) index 27 ml/m2 - LA ESV SP 4CH (MOD) 38.45 ml - LA ESV SP 2CH (MOD) 46.64 ml - Name Value Normal Range MV E-wave Vmax 0.6 m/sec - MV deceleration time 175 msec - MV A-wave Vmax 0.9 m/sec - MV E:A ratio 0.7 ratio - LV septal e' Vmax 0.08 m/sec - LV lateral e' Vmax 0.09 m/sec - LV E:e' septal ratio 7.5 ratio - LV E:e' lateral ratio 7 ratio - Name Value Normal Range AV Vmax 1.9 m/sec - AV VTI 31.5 cm - AV peak gradient 14.6 mmHg - AV mean gradient 6.5 mmHg - LVOT Vmax 1.3 m/sec - LVOT VTI 22.3 cm - LVOT peak gradient 7 mmHg - LVOT mean gradient 3.3 mmHg - Name Value Normal Range TR Vmax 3.5 m/sec - TR peak gradient 49 mmHg - RAP 8 mmHg - RVSP 57 mmHg - IVC diameter 0.9 cm - Name Value Normal Range PV Vmax 1 m/sec - PV peak gradient 4 mmHg -
[2017-06-13] MEDS ORDERED: fentaNYL* 50 MCG/ML 2 ML VIAL (100 MCG VIAL) ONE (11:07)
--- NOTE | 2017-06-13 12:33 | RAD ---
INDICATION: Mass inseparable from the RIGHT margin of the anterior and middle mediastinum. COMPARISON: June 12, 2017 CT. Written informed consent obtained. Timeout performed. PROCEDURE: Routine aseptic skin prep RIGHT para midline upper chest wall. Soft tissues extending from the skin to the anterior margin of the mediastinal mass anesthetized with 3 mL 1% lidocaine with a 25-gauge needle. 2 fine-needle aspiration passes were made under direct ultrasound visualization with 22-gauge coaxial needles. Samples deemed sufficient by pathology. Band-Aid placed over region of the needle punctures. Procedure well tolerated without immediate complication. IMPRESSION: Successful ultrasound-guided fine-needle aspiration RIGHT mediastinal mass.
[2017-06-13 13:26] LABS: Total Protein, BF 5.2 g/dL
--- NOTE | 2017-06-13 16:44 | CONS ---
PULMONARY CONSULTATION REPORT: DATE OF CONSULTATION: 06/13/17 CONSULTATION REQUESTED BY: Dr. Hightower. REASON FOR CONSULTATION: Evaluation of abnormal CT chest. HISTORY OF PRESENT ILLNESS: 71-year-old -[place] female with history of hypertension, dyslipidemia, GERD, gout, AFIA, hiatal hernia who is visiting her son from [place]. The patient had dry nagging cough over the past few days , attributed to be viral URI. She had her symptoms worsen over the past 3 weeks with worsening cough and shortness of breath. The patient reports that whenever she tries to take deep breath that elicits her cough. The patient denies chest pain, palpitations, or dizziness. The patient reports mostly dry cough, intermittently productive. The patient also reports inability to lay down flat at night due to shortness of breath. Denies abdominal pain, nausea or vomiting. The patient reports decreased appetite recently. She admits to night sweats over the past week. The patient is unsure about weight loss. The patient has been requiring O2 supplementation. Pulmonary consultation was requested given abnormal CT chest findings. I personally reviewed CT scan of the chest performed on 06/12/17, and CTA on 06/10/17. The patient noted to have large right paramediastinal mass measuring about 12.5 cm, involving right upper lobe and right middle lobe with compressive atelectasis of right middle and right lower lobe and also with [id number] sized right pleural effusion. The patient also with involvement or mass extending in to right hilum and also to the pericardium. The patient was seen and examined at bedside by me. The patient reports no significant change in her breathing or cough. Taking deep breath, elicits cough each time. PAST MEDICAL HISTORY: 1. Hypertension. 2. Hyperlipidemia. 3. GERD. 4. Diabetes. 5. Hiatal hernia. 6. AFIA, not being treated currently. 6. Gout. 7. Nephrolithiasis. PAST SURGICAL HISTORY: 1. Laparoscopic cholecystectomy 2. Partial nephrectomy on the left. MEDICATIONS AT HOME: 1. Metformin 1 g b.i.d. 2. Norvasc 10 mg daily. 3. Nasacort 2 sprays both nostrils daily. 4. Pravachol 40 mg daily. 5. Prilosec 20 mg daily. 6. Lopressor 50 mg b.i.d. 7. Astepro 2 sprays intranasally daily as needed. 8. B12 2000 mcg daily. 9. Aspirin 81 mg daily. ALLERGIES: CODEINE, LISINOPRIL, PENICILLIN, CLINDAMYCIN. FAMILY HISTORY: Diabetes and high blood pressure in mother, diabetes and CVA in father. No known history of malignancies. SOCIAL HISTORY: She is former smoker, quit long time ago in 1970s. She lives with her daughter in [place] and has been visiting her son locally. No alcohol or drug abuse. REVIEW OF SYSTEMS: All 14 systems reviewed and as per HPI. PHYSICAL EXAMINATION: The patient in bed in no apparent distress. HEENT: Pupils equal and reactive to light, mucous membranes moist. Respiratory: Good air entry bilaterally. Diminished breath sounds on the right. Cardiovascular: S1, S2 present, regular. Abdomen: Soft, nontender, nondistended. Bowel sounds present. Neuro: No focal deficits. Skin: No bruises, no rash. Extremities: Normal range of motion. LABORATORY DATA: WBC count 9.5, hemoglobin 11.4, hematocrit 35, platelet count 512. D-dimer elevated at 619, INR 1.07. Sodium 139, potassium 3.9, chloride 108, bicarb 22, BUN 7, creatinine 0.8, calcium within normal limits. Elevated total protein at 9.1 with normal albumin and increased globulin at 5.2. Pleural fluid analysis from 06/09/17, showed bloody effusion with 47% lymphocytes, cytology is pending. Echocardiogram: EF of 60 to 65% with septal flattening of intraventricular septum consistent with right ventricular overload [id number] tricuspid regurgitation and [id number] pulmonary hypertension. IMPRESSION AND RECOMMENDATIONS: 71-year-old female with remote history of smoking admitted with shortness of breath, dry cough, found to have large mediastinal mass and pleural effusion on the right secondary to associated atelectasis, cytology is pending from pleural fluid. Mass concerning for malignancy, small cell likely. The patient with increased globulin and total protein concerning for multiple myeloma, thymoma or other hematological malignancy. The patient with peripheral mass and could be reached easily with CT-guided biopsy The patient is scheduled for CT-guided biopsy likely to be performed today. If cytology is positive for malignancy, she does not need lung biopsy. Continue with rest of management as per primary team. The case was discussed with Dr. Hightower in detail, he reported that patient is to get a CT-guided or ultrasound-guided biopsy today. I have discussed the case also with the patient and her daughter who is at bedside. [id number]/[facility] #: [id number] MTDJesus
[2017-06-13] MEDS: Atorvastatin* 10 MG TAB PO SCH (17:41)
[2017-06-13] MEDS: Polyethylene Glycol 3350* 17 GM PACKET PO PRN (21:00)
[2017-06-14] MEDS: Heparin VIAL(*) 5000 UNITS/ML VIAL (FIVE THOUSAND) SUBCUT SCH (05:27)
[2017-06-14] MEDS: Insulin LISPRO* 1 UNITS UNIT SUBCUT SCH (07:59)
[2017-06-14 08:01] VITALS: BP 126/63
[2017-06-14] MEDS: Aspirin EC Low Dose* 81 MG TAB.EC PO SCH (08:33)
[2017-06-14] MEDS: Metoprolol Tartrate TAB* 25 MG PO SCH (08:33)
[2017-06-14] MEDS: amLODIPine TAB* 5 MG PO SCH (08:34)
[2017-06-14] MEDS: Benzonatate CAP* 100 MG PO SCH (08:34)
[2017-06-14] MEDS: Omeprazole CAP* 20 MG PO SCH (08:34)
--- NOTE | 2017-06-14 08:37 | DCNOTE ---
Patient seen this morning. Still with cough on inspiration. No fever or chills. Able to ambulate around the unit with no issues. Has flight tonight and PCP appt on . Will have her sign medical release to ease information flow to PCP once cytology/path results are back. On exam, absent BS to R mid lung field, otherwise clear, mild tachycardia Plan to discharge home today for patient to return to [place] for further work- up of paramediastinal mass.
[2017-06-14] MEDS ORDERED: Furosemide TAB* 20 MG PO SCH (09:00)
--- NOTE | 2017-06-14 12:57 | PN ---
Progress Note - Progress Note Date of Service: 06/14/17 - Pulm f/u Note: Pt seen and examined at bedside. Pt reported improvement in breathing, has been having intermittent cough. Reports soreness at biopsy site, denies pain Aspirin EC Low Dose* [Ecotrin EC Low Dose 81 MG*] 81 mg PO DAILY Azelastine 0.15% NASAL(NF) [Astepro 0.15% NASAL (NF)] 2 spray NASAL DAILY PRN Cyanocobalamin TAB* [Vitamin B12 TAB*] 2,000 mcg PO DAILY Metoprolol Tartrate TAB* [Lopressor TAB*] 50 mg PO BID Omeprazole CAP* [Prilosec CAP* 20 MG] 20 mg PO DAILY Pravastatin (NF) [Pravachol (NF)] 40 mg PO QPM Triamcinolone NASAL SPRAY* [Nasacort Aq Nasal Wray*] 2 spray BOTH NARES DAILY amLODIPine TAB* [Norvasc 5 mg TAB*] 10 mg PO DAILY 06/10/17 metFORMIN* [Glucophage 1000 MG TAB *] 1,000 mg PO BID 06/10/17 Benzonatate CAP* [Tessalon 100 MG CAP*] 100 mg PO TID PRN #30 cap Furosemide TAB* [Lasix TAB*] 20 mg PO DAILY #7 tab Vital Signs Temp Pulse Resp BP Pulse Ox 98.3 F 82 18 126/63 96 06/14/17 07:39 06/14/17 07:39 06/14/17 07:39 06/14/17 07:39 06/14/17 07:39 Gen: Pleasant, AAF in bed in NAD HEENT: No Scleral Icterus, Mucous Membranes Moist Neck: NL Appearance and Movements; NL JVP Respiratory: Symmetrical Chest Expansion and Respiratory Effort, Absent BS in Rt lower and middle lung sena, no wheeze Cardiovascular: NL Sounds; No Murmurs; No JVD, RRR Abdominal: NL Sounds, No Tenderness, No Distention Lymphatic: No palpable cervical Adenopathy Extremities: No Edema Skin: No Rash or Ulcers Neurological: Alert and Oriented x 3 Laboratory Results - last 24 hr 06/09/17 06/09/17 06/13/17 19:00 19:00 16:58 POC Glucose (mg/dL) 117 H Fluid Source Pleural Fluid Cell Count Rvw By Fluid Total Protein 5.2 06/14/17 07:44 POC Glucose (mg/dL) 129 H Fluid Source Fluid Cell Count Rvw By Fluid Total Protein CT guided biopsy of mediastinal mass on rt side- pending I/R: 71 y o f with SOB, cough, CT chest showing large rt mediastinal mass and possible pericardial mass with associated rt pleural effusion s/p CT guided biopsy, pathology pending Pt was visiting her son locally, decided to go back to [place] and f/u with her PCP Pt reported feeling better and wanting to fly out today Pt and daughter understand the importance of f/u of biopsy results
--- NOTE | 2017-06-15 01:04 | DS ---
CC: Dr. Lizet Santizo, fax# [phone] * DISCHARGE SUMMARY: DATE OF ADMISSION: 06/10/17 DATE OF DISCHARGE: 06/14/17 PRIMARY CARE PHYSICIAN: Dr. Lizet Santizo. PRINCIPAL DISCHARGE DIAGNOSIS: Right-sided pleural effusion and large paramediastinal mass. SECONDARY DIAGNOSES: 1. Hypertension. 2. Hyperlipidemia. 3. Gastroesophageal reflux disease. 4. Diabetes. DISCHARGE MEDICATION REGIMEN: 1. Tessalon 100 mg by mouth 3 times daily as needed for cough. 2. Lasix 20 mg by mouth daily. 3. Astepro 2 sprays nasal daily as needed for congestion. 4. Metoprolol tartrate 50 mg by mouth 2 times daily. 5. Amlodipine 10 mg by mouth daily. 6. Omeprazole 20 mg by mouth daily. 7. Pravastatin 40 mg by mouth daily. 8. Vitamin B12, 2000 mcg by mouth daily. 9. Triamcinolone 2 sprays in both nares daily. 10. Aspirin 81 mg by mouth daily. 11. Metformin 1000 mg by mouth 2 times daily. STUDIES DONE DURING HOSPITALIZATION: Chest x-ray. Impression: Large right pleural effusion with right basilar atelectasis. Left lung field was clear. Repeat chest x-ray. Impression: Interval decrease in size of the right pleural effusion. No pneumothorax seen. Focal increased density in the right paramediastinal and hilar region, suspicious for mass or adenopathy. CT of the chest with contrast. Impression: A 12.5 cm large right paramediastinal and pericardial mass. Recommend consideration of further evaluation with tissue sampling. Right pleural effusion with compressive atelectasis of the right middle lobe and lower lobe diverticulosis. HPI AND HOSPITAL SUMMARY: Please see the full history and physical by Peter Webber NP for full details. Briefly, Ms. Hightower is a 71-year-old female with a past medical history as above, who presented to the hospital with dry cough and shortness of breath. In the emergency department, she was found to have a large right pleural effusion. Dr. Malave of Surgery was consulted who performed a thoracentesis with 1 L fluid removed. The fluid has 9500 red blood cells and based on the protein contact was consistent with transudate. The patient had some improvement in her symptoms after the thoracentesis. She subsequently underwent a CT scan, which as above showed a large paramediastinal mass. Dr. Lazaro of Pulmonology was consulted for consideration of endoscopic bronchial ultrasound and biopsy; however, she felt that it may be easier to obtain a tissue sample via percutaneous route. Dr. Govea of Interventional Radiology performed an ultrasound-guided biopsy of the mass. At this time, the cytology from the pleural effusion as well as the pathology from the biopsy are both pending. I spoke with Dr. Santizo, the patient's PCP in [place], and in discussions with her as well as with the patient, the patient preferred to return back to [place] for further workup and management, and we will have the results available for her PCP as soon as they are in our system. The patient was discharged on oral Lasix for the time being. She may require another thoracentesis in the near future. TIME SPENT: Total time spent on this discharge, 45 minutes. This is a summary of the hospitalization. Please see the full medical record for further details. [id number] #: [id number] MTDD
== END 2017-06-14 10:50 | disposition home or self-care (01) | DRG 186 ==
LOC: ED 14:27 → MEDTELE 17:33
PROVIDERS: ADMIT Internal Medicine; ATTEND Hospitalist
PROC: 0W993ZZ Drainage of Right Pleural Cavity, Percutaneous Approach (ICD-10-PCS; principal; 2017-06-10)
PROC: 0WBC3ZX Excision of Mediastinum, Percutaneous Approach, Diagnostic (ICD-10-PCS; 2017-06-13)
DX: J90 Pleural effusion, not elsewhere classified (principal); J98.59 Other diseases of mediastinum, not elsewhere classified; J96.01 Acute respiratory failure with hypoxia; I10 Essential (primary) hypertension; E78.5 Hyperlipidemia, unspecified; K21.9 Gastro-esophageal reflux disease without esophagitis; E11.9 Type 2 diabetes mellitus without complications; Z79.82 Long term (current) use of aspirin; M10.9 Gout, unspecified; G47.33 Obstructive sleep apnea (adult) (pediatric); Z87.442 Personal history of urinary calculi; Z90.49 Acquired absence of other specified parts of digestive tract; Z88.5 Allergy status to narcotic agent; Z88.1 Allergy status to other antibiotic agents; Z88.0 Allergy status to penicillin; Z88.8 Allergy status to other drugs, medicaments and biological substances; Z82.49 Family history of ischemic heart disease and other diseases of the circulatory system; Z83.3 Family history of diabetes mellitus; Z82.3 Family history of stroke; Z87.891 Personal history of nicotine dependence; K44.9 Diaphragmatic hernia without obstruction or gangrene; Z79.84 Long term (current) use of oral hypoglycemic drugs
CPT/HCPCS: 36415; 71010; 71020; 71260; 71275; 76942; 80048; 80053; 81003; 82553; 83615; 83880; 83986; 84157; 84484; 85025; 85379; 85610; 86140; 87040; 87205; 88172; 88173; 88177; 88305; 88341; 88342; 89051; 93005; 93306; 94640; 94760; A9270-GY; J0456; J0696; J1644; J3010; Q9967